=== PATIENT | female | born 1955 | race Two or more races ===

== ENCOUNTER 2021-12-09 16:38 | Emergency (ER) | payer BC ==
[~2021-12-09] VITALS: Ht 167.6 cm; Wt 54.4 kg
--- NOTE | 2021-12-09 16:50 | NUR ---
BIBFAMILY C/O CHEST PAIN STARTED YESTERDAY, HURTS WHEN TAKING DEEP BREATHS. AMBULATORY, PLACED ON BED, AAOX4, BREATHING EVEN AND UNLABORED, IN PAIN 7/ PS
--- NOTE | 2021-12-09 16:55 | NUR ---
BLOOD DRAWN AND SENT TO LAB
[2021-12-09 17:44] LABS: BASOPHILS % (AUTO) 0.7 % (0.0-2.0); EOSINOPHILS % (AUTO) 3.4 % (0.0-6.0); HEMATOCRIT 36 % (33-45); HEMOGLOBIN 12.3 g/dL (11.5-14.8); LYMPHOCYTES # (AUTO) 1.9 K/uL (0.8-4.8); MEAN CORPUSCULAR HGB CONC 34 g/dl (31.0-36.0); MEAN CORPUSCULAR VOLUME 90 fL (82-100); MONOCYTES # (AUTO) 0.4 K/uL (0.1-1.30); MONOCYTES % (AUTO) 7.3 % (2.0-12.0); NEUTROPHILS # (AUTO) 3.5 K/uL (1.8-8.9); NEUTROPHILS % (AUTO) 57.6 % (43.0-81.0); PLATELET COUNT (AUTO) 159 K/uL (150-450); RED BLOOD CELL COUNT(AUTO) 3.97 MIL/uL (4.0-5.2)
[2021-12-09 18:04] LABS: CALCIUM, SERUM 9.5 mg/dL (8.5-10.1); CARBON DIOXIDE 33 mmol/L (21-32); CHLORIDE 103 mmol/L (98-107); CREATININE 0.7 mg/dL (0.6-1.3); GLUCOSE 96 mg/dL (74-106); POTASSIUM 4.2 mmol/L (3.5-5.1); SODIUM SERUM 142 mmol/L (136-145); UREA NITROGEN, BLOOD 17 mg/dL (7-18)
[2021-12-09 21:49] VITALS: BP 137/70
--- NOTE | 2021-12-09 21:49 | NUR ---
Patient discharged to home in stable condition. Written and verbal after care instructions given. Patient verbalizes understanding of instruction.IV removed. Catheter intact and site benign. Pressure and 4x4 applied to site. No bleeding noted.
== END 2021-12-09 21:49 | disposition home or self-care (01) ==
LOC: ER 16:51
DX: R07.89 Other chest pain (principal); I10 Essential (primary) hypertension; Z88.0 Allergy status to penicillin
CPT/HCPCS: 36415; 71045-TC; 80048-TC; 83880; 84484-TC; 85025-TC

== ENCOUNTER 2024-01-30 18:35 | Emergency (ER) | payer MEDICAID, MEDICARE ==
[~2024-01-30] VITALS: Ht 170.2 cm; Wt 57.2 kg
[2024-01-30 18:56] VITALS: BP 194/86; TEMP 97.9; O2SAT 99
== END 2024-01-30 20:16 | disposition home or self-care (01) ==
LOC: ER 18:46
DX: S61.211A Laceration without foreign body of left index finger without damage to nail, initial encounter (principal); I10 Essential (primary) hypertension; Z88.0 Allergy status to penicillin; W45.8XXA Other foreign body or object entering through skin, initial encounter; Y93.89 Activity, other specified; Y92.89 Other specified places as the place of occurrence of the external cause; Y99.8 Other external cause status
CPT/HCPCS: 12001; 99282; A6403